=== PATIENT | female | born 1945 | race Caucasian/White ===

== ENCOUNTER → 2018-04-18 12:26 | Outpatient (CLI) | payer MEDICARE, OTHER, SELFPAY ==
--- NOTE | 2018-04-18 | DI.MG.S_ITS ---
BILATERAL DIGITAL DIAGNOSTIC MAMMOGRAM 3D/2D SHORT-TERM FOLLOW-UP: 04/18/2018 CLINICAL: Patient returns for a 6 month follow up of the left breast. Due for bilateral imaging. Comparison is made to exams dated: 08/03/2017 mammogram, 12/13/2016 mammogram - [facility], and 11/16/2016 mammogram - [facility]. There are scattered fibroglandular elements in both breasts. There is a 5 mm oval equal density asymmetry in the left breast posterior depth central to the nipple seen on the mediolateral oblique view only. This is not seen in additional views. No other significant masses, calcifications, or other findings are seen in either breast. There has been no significant interval change. IMPRESSION: PROBABLY BENIGN The 5 mm oval equal density asymmetry in the left breast is probably benign. There is no abnormality seen in the left breast to correspond with the mammographic density. A follow-up mammogram in 12 months is recommended. This exam was interpreted at Station ID: [id number]. NOTE: For mammograms, a report in lay terms will be sent to the patient. Approximately 15% of breast malignancies will not be visualized mammographically. In the management of a palpable breast mass, a negative mammogram must not discourage biopsy of a clinically suspicious lesion. Electronically Signed By: Chris Nowak M.D. cj/:04/20/2018 08:47:21 letter sent: Followup Recommended ACR BI-RADS Category 3: Probably benign 3343F
== END ==
PROVIDERS: Visit Provider Family Medicine Geriatric Medicine
DX: R92.8 Other abnormal and inconclusive findings on diagnostic imaging of breast (principal)
CPT/HCPCS: 77066; G0279

== ENCOUNTER → 2019-05-15 09:37 | Outpatient (CLI) | payer MEDICARE, OTHER, SELFPAY ==
--- NOTE | 2019-05-15 | DI.MG.S_ITS ---
BILATERAL DIGITAL DIAGNOSTIC MAMMOGRAM 3D/2D: 05/15/2019 CLINICAL: Patient returns today to evaluate an asymmetry in the left breast, first seen on comparison mammogram of 12/13/16. Comparison is made to exams dated: 04/18/2018 mammogram, 08/03/2017 mammogram, 12/13/2016 mammogram - [facility], 11/16/2016 mammogram - [facility], 08/03/2017 ultrasound, and 12/13/2016 ultrasound - [facility]. There are scattered fibroglandular elements in both breasts. Previously identified 5 mm oval equal density asymmetry in the left breast posterior depth central to the nipple seen on the mediolateral oblique view only is again not seen on additional views. This was first identified on comparison mammogram of 12/13/16 and has remained stable on subsequent mammograms of 08/03/17 and 04/18/18, and remains stable on the current exam. This area likely represented superimposed fibroglandular tissues. There are bilateral vascular calcifications. A circular mole marker projects over the left breast. No significant masses, calcifications, or other findings are seen in either breast. IMPRESSION: Previously identified stable 5 mm oval equal density asymmetry in the left breast posterior depth central to the nipple seen on the mediolateral oblique view only was first identified on comparison mammogram of 12/13/16 and now demonstrates greater than two years of stability, consistent with benignity. There is no mammographic evidence of malignancy in either breast. Return to annual screening mammography schedule recommended. The patient was advised to monitor her breasts and to return sooner for reevaluation if she feels anything grow or change in her breasts. This exam was interpreted at Station ID: [id number]. NOTE: For mammograms, a report in lay terms will be sent to the patient. Approximately 15% of breast malignancies will not be visualized mammographically. In the management of a palpable breast mass, a negative mammogram must not discourage biopsy of a clinically suspicious lesion. Electronically Signed By: Cesar Carty M.D. ecl/:05/15/2019 10:38:06 letter sent: Normal Exam ACR BI-RADS Category 2: Benign Finding(s) 3342F
== END ==
PROVIDERS: PCP Family Medicine Geriatric Medicine; Visit Provider Family Medicine Geriatric Medicine
DX: R92.8 Other abnormal and inconclusive findings on diagnostic imaging of breast (principal)
CPT/HCPCS: 77066; G0279

== ENCOUNTER 2023-07-01 10:53 | Day surgery (SDC) | payer MEDICARE, OTHER, SELFPAY ==
[2023-06-24 12:12] VITALS: BMI 21.6
[2023-07-01 11:05] VITALS: BP 172/79; PULSE 74; RESP 16; TEMP 36.6; O2SAT 99; BMI 21.6
[2023-07-01] MEDS: LACTATED RINGERS 1,000 ML 42 ML IV (11:37)
--- NOTE | 2023-07-01 12:12 | PM.PREOP ---
Pre-operative Note Interval Note History & Physical reviewed/Exam performed by Physician: Yes Changes to H&P: No
--- NOTE | 2023-07-01 12:13 | PM.OP.1 ---
Operative Date/Time/Diagnoses Date of procedure: 07/01/23 Time of procedure: 12:14 Pre-op diagnosis: Right second hammertoe with pain Post-op diagnosis: same Procedure & Clinicians Procedure: Right second toe amputation Same procedure as scheduled: Yes Indications: Painful right 2nd hammertoe with persistent pre ulcerative lesion. Conservative measures failed to alleviate the pain and she wished to have surgical intervention at this time. We spoke the risks and potential complications as well as expected outcomes of the procedure. Consent was signed and there were no contraindication to the procedure at this time. Surgeon: Heaven Hogue Click Yes if Unassisted: Yes Anesthesia Type: General Operative Notes Closure Type: primary Specimen(s): none sent Estimated Blood Loss (mL): 10 Blood products transfused: none Tourniquet time (min): 7 Procedure in detail: The patient was brought to the operating room and placed on the operating table in the supine position. The tourniquet was placed about the right ankle. Well padded, appropriately aligned. After induction of general anesthesia local anesthesia was obtained using the recorded injectables to the 2nd toe. The foot and ankle were prepped and draped in the usual aseptic manner. The tourniquet was inflated. After check of anesthesia a full-thickness circumferential incision was made around the 2nd toe. This was then continued into the metatarsophalangeal joint linearly. The toe was carefully disarticulated. The area was irrigated with copious amounts of normal sterile saline. No necrotic tissue or abscesses were noted. Skin and tissue was revised to allow for appropriate closure. The tourniquet was deflated and a prompt hyperemic response was seen to the foot. Vessels were cauterized and ligated as necessary. 4-0 Vicryl was used subcutaneously for closure and 4-0 nylon for the skin. The area was dressed with a sterile lightly compressive dressing. She was transferred to the PACU with vital signs stable and vascular status Complications: none Post-operative Condition: stable Disposition: PACU Plan for aftercare: Following a period of postoperative monitoring, the patient will be discharged to home on written and oral postoperative instructions including keeping the dressing dry and intact initially, then she has a referral placed for her industrial safety and health specialist [place] to perform a dressing change as directed in approximately 7-10 days and again in another 7-10 days, unless this falls at the time where she is going to be seeing me for her postoperative visit off [place]. This was done as she states she was unable to come [place]. Is reviewed with her that she use no greater than 50% weight to the surgical foot, icing behind the knee is okay, and elevating the foot when seated home. DVT prevention techniques have been reviewed. For the 1st postoperative visit the dressing will be changed and close to the 3rd postoperative week we will likely remove the sutures.
[2023-07-01] MEDS: CEFAZOLIN 2 GM/100 ML PREMIX 100 ML IV (13:25)
[2023-07-01 13:33] VITALS: BP 156/65; PULSE 74; RESP 18; TEMP 36.1; O2SAT 97
[2023-07-01 13:38] VITALS: BP 147/72; PULSE 77; RESP 16; O2SAT 98
[2023-07-01 13:43] VITALS: BP 139/64; PULSE 76; RESP 16; O2SAT 97
[2023-07-01 13:45] VITALS: BP 149/68; PULSE 75; RESP 16; TEMP 36.1; O2SAT 95
[2023-07-01 13:51] VITALS: BP 138/69; PULSE 73; RESP 16; TEMP 36.1; O2SAT 98
--- NOTE | 2023-07-01 14:07 | SUR.PHASEII ---
pt really wanted to [place] Hogue aware and saw pt before she left. Pt's dressing dry and intact. Pt denied pain and states I have had 2 other toes amputated before this one.'. Pt had a juice prior to d/c.
== END 2023-07-01 14:02 | disposition home or self-care (01) ==
PROVIDERS: PCP Family Medicine; Referring Provider Podiatrist; Visit Provider Podiatrist
PROC: (CPT 28820; principal; 2023-07-01 12:30)
DX: M20.41 Other hammer toe(s) (acquired), right foot (principal); L84 Corns and callosities; M06.9 Rheumatoid arthritis, unspecified
CPT/HCPCS: 28820; J0690; J1100; J2405; J2704; J3010